=== PATIENT | female | born 1980 | race Caucasian/White ===

== ENCOUNTER 2017-11-29 09:45 | Outpatient (CLI) | payer OTHER | END 2017-11-29 09:46 | disposition home or self-care (01) | LOC: BICRAD 09:45 | PROVIDERS: ATTEND Internal Medicine Gastroenterology | DX: Z02.71 Encounter for disability determination (principal) ==

== ENCOUNTER 2022-08-19 17:17 | Emergency (ER) | payer SELFPAY | END 2022-08-19 19:05 | disposition home or self-care (01) | LOC: ERS 17:17 | DX: M54.31 Sciatica, right side (principal) ==

== ENCOUNTER 2023-08-09 16:53 | Emergency (ER) | payer OTHER, SELFPAY ==
[2023-08-09] MEDS ORDERED: Gabapentin 100 MG CAP ONE (21:06)
[2023-08-09] MEDS ORDERED: Ketorolac Tromethamine 30 MG (1 mL) VIAL ONE (21:06)
[2023-08-09 21:44] LABS: #Basophils 0.1 thou/uL (0.0-0.2); #Eosinphils 0.2 thou/uL (0.0-0.7); #Monocytes 0.4 thou/uL (0.11-0.59); %Basophils 0.8 % (0.0-1.0); %Eosinophils 3.1 % (0.0-10.0); %Monocytes 5.2 % (0.0-10.0); %Neutrophils 54.5 % (42.0-75.0); Hematocrit 44.8 % (36.0-47.0); Hemoglobin 15.5 g/dL (12.0-16.0); Mean Corpuscular HGB CONC 34.6 g/dL (32.0-36.0); Mean Corpuscular Hemoglobin 33.3 pg (27.0-31.0); Mean Corpuscular Volume 96.1 fl (78.0-98.0); Mean Platelet Volume 10.1 fL (7.4-10.4); Platelet Count 234 10x3/uL (130-400); RBC Distribution Width 12.6 % (11.5-14.5); Red Blood Cell (RBC) Count 4.66 mill/uL (4.20-5.40); White Blood Cell (WBC) Count 7.4 10x3/uL (4.8-10.8)
[2023-08-09 22:10] LABS: ALT (SGPT) 11 U/L (8-55); AST (SGOT) 17 U/L (5-34); Albumin 4.6 g/dL (3.5-5.0); Alkaline Phosphatase 65 U/L (40-110); Anion Gap 14 mmol/L (10-20); BUN (Urea Nitrogen) 25 mg/dL (7.0-18.7); Bilirubin, Total 0.9 mg/dL (0.2-1.2); Calc. Creatinine Clearance 0 mL/min (70-130); Calcium 9.4 mg/dL (7.8-10.44); Carbon Dioxide 21 mmol/L (22-29); Chloride 104 mmol/L (98-107); Estimated GFR 85; Globulin 2.6 g/dL (2.4-3.5); Glucose 81 mg/dL (70-105); Potassium 4.3 mmol/L (3.5-5.1); Protein, Total 7.2 g/dL (6.0-8.3); Sodium 135 mmol/L (136-145)
[2023-08-09 22:11] LABS: Acetaminophen Less than 10 mcg/mL (10.0-30.0); Alcohol Less than 10.0 mg/dL (Less than 10); Lipase 51 U/L (8-78); Salicylate Less than 8.0 mg/dL (15.0-30.0)
[2023-08-09 22:24] LABS: Troponin I Less than 0.010 ng/mL (< 0.028)
[2023-08-10 00:33] LABS: Amphetamine Detected (NotDetected); Barbiturates Screen Not Detected (NotDetected); Benzodiazepine Screen Not Detected (NotDetected); Cocaine Metabolite Screen Not Detected (NotDetected); Methadone Not Detected (NotDetected); Methamphetamine Detected (NotDetected); Opiate Screen Not Detected (NotDetected); Oxycodone Screen Not Detected (NotDetected); Phencyclidine (PCP) Not Detected (NotDetected); THC/Cannabinoid Screen Not Detected (NotDetected); Tricyclic Screen Not Detected (NotDetected)
[2023-08-10 00:36] LABS: Bacteria/HPF None Seen HPF (None Seen); Bilirubin Negative (Negative); Blood, Urine Negative (Negative); CAUTI Indications for Culture Pelvic or flank pain; Clarity Clear (Clear); Glucose, Urine (Dipstick) Normal (Negative); Ketone, Urine Negative (Negative); Leukocyte 75 Leu/uL (Negative); Nitrite Negative (Negative); Protein, Urine (Dipstick) 20 mg/dL (Neg-Trace); RBC/HPF 0-3 HPF (0-3); Specific Gravity, Urine 1.033 (1.002-1.036); WBC/HPF 21-50 HPF (0-3)
[2023-08-10 00:38] LABS: Urine Culture Reflex Yes Yes
== END 2023-08-10 00:18 | disposition home or self-care (01) ==
LOC: ERS 16:53
DX: R07.9 Chest pain, unspecified (principal); M25.551 Pain in right hip; F17.210 Nicotine dependence, cigarettes, uncomplicated; E03.9 Hypothyroidism, unspecified; Z79.890 Hormone replacement therapy
CPT/HCPCS: 36415; 71046; 80053; 80306; 80307; 81001; 83690; 84484; 85025; 87086; 93005; 96372; J1885

== ENCOUNTER 2024-05-13 12:13 | Emergency (ER) | payer SELFPAY ==
[2024-05-13] MEDS ORDERED: Proparacaine 0.5% Opth 15 ML BOT ONE (12:53)
[2024-05-13] MEDS ORDERED: Fluorescein Opthalmic Strip ONE (12:53)
[2024-05-13] MEDS ORDERED: Ibuprofen 200 MG TAB ONE (14:07)
== END 2024-05-13 14:41 | disposition home or self-care (01) ==
LOC: ERS 12:13
DX: R10.9 Unspecified abdominal pain (principal); M16.11 Unilateral primary osteoarthritis, right hip; F17.210 Nicotine dependence, cigarettes, uncomplicated
CPT/HCPCS: 99283